=== PATIENT | female | born 1965 | race Caucasian/White ===

== ENCOUNTER 2016-10-28 08:46 | Observation (INO) | payer MEDICARE ==
[~2016-10-28] VITALS: Ht 165.1 cm; Wt 108.2 kg
[2016-10-28] VITALS (10 sets, daily range): BP systolic 120–149; BP diastolic 65–96; PULSE 76–94; RESP 16–20; TEMP 97.6–98; O2SAT 94–98
[~2016-10-28 08:46] MED LIST: AMLO10TA2 PO; ASPI325T PO; ATOR1TAB18 PO; CLOP75TA PO; FAMO40TA PO; GABA400C5 PO; LEVEMIR SQ; LISI10TA3 PO; METO50TA PO; NORC5TAB PO; PARO25TA PO; TOPI1TAB36 PO; TRAZ50TA12 PO
[2016-10-28] MEDS ORDERED: SODIUM CHLORIDE 0.9% FLUSH 5 ML FLUSH IVF PRN ×2 (09:00→14:15)
--- NOTE | 2016-10-28 09:06 | PD ---
HPI Chief Complaint: Neuro Symptoms/ Deficits Time Seen by Provider: 08:51 Travel History International Travel<30 days: No Contact w/Intl Traveler<30days: No Traveled to known affect area: No History of Present Illness HPI The patient is a 51-year-old female who presents emergency department for strokelike symptoms. The patient to bed last night around 1 AM, which she awakened this morning she noticed that she had some dysarthria and increased right sided weakness. The patient has a history of previous CVA, last CVA was December 2015. The patient states she was seen at [facility] at that time, her neurologist was Dr. Hopkins. The patient notes mild dysarthria this morning, dizziness, not "feeling", and increased right sided weakness. The states the patient has a history of asymmetric smile after previous stroke and does have residual deficits on the right side from her previous stroke. The patient does take aspirin or Plavix on a daily basis for her CVA. The patient also has a history of diabetes, blood glucose upon arrival was 156. The patient denies any chest pain, shortness breath, nausea, vomiting, or abdominal pain. The patient's primary physician is Dr. Jitendra Haywood. [facility] Past Medical History Hx Anticoagulant Therapy: Yes (PLAVIX; 325MG ASA) Blood Disorders: No Bipolar Disorder: Yes Anxiety: Yes Depression: Yes Heart Rhythm Problems: Yes Cancer: No Cardiac Catheterization: Yes Cardiovascular Problems: Yes (3 CURRY'S; HTN) High Cholesterol: Yes Chemotherapy: No Chest Pain: Yes COPD: Yes Cerebrovascular Accident: Yes (2 STROKES) Coronary Artery Disease: Yes Diabetes: Yes (TYPE 2) Diminished Hearing: Yes (Bi-lateral) Endocrine: No GERD: Yes Genitourinary: Yes Headaches: Yes Hypertension: Yes Immune Disorder: No Kidney Stones: Yes Musculoskeletal: No Neurologic: Yes (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 FLUID) Psychiatric: Yes (BIPOLAR) Respiratory: Yes (PNEUMONIA X 2) Integumentary: Yes (FACIAL CELLULITIS ) Immunizations Current: Yes Migraines: Yes Myocardial Infarction: Yes Pneumonia: Yes Radiation Therapy: No Seizures: No Sleep Apnea: Yes PNEUMOCCOCAL Vaccine (Year): 2 : 4 Para: 4 : 1 Past Surgical History AICD: No Arteriovenous Shunt: No Body Medical Devices: PROMUS STENT PLACEMENT LAD/RCA Cardiac Surgery: Yes (CARDIAC CATH) Section: Yes Coronary Stent: Yes Ear Surgery: Yes Endocrine Surgery: No Eye Surgery: No Genitourinary Surgery: No Hysterectomy: Yes Insulin Pump: No Joint Replacement: No Neurologic Surgery: Yes (SPINAL FLUID REMOVED 2013) Oral Surgery: No Pacemaker: No Tonsillectomy: Yes Other Surgery: Yes Social History Alcohol Use: No Tobacco Use: No Substance Use: No Allergies-Medications (Allergen,Severity, Reaction): Coded Allergies: Latex (Verified Allergy, Intermediate, ITCHING, 08/10/16) Adhesives (Verified Allergy, Mild, RASH/ITCHING, 08/10/16) Bee Sting (Verified Allergy, Unknown, SHORTNESS OF BREATH, 08/10/16) Reported Meds & Prescriptions Reported Meds & Active Scripts Active Reported Clopidogrel (Clopidogrel Bisulfate) 75 Mg Tab 75 Mg PO DAILY Trazodone (Trazodone HCl) 50 Mg Tab 50 Mg PO HS Topiramate 50 Mg Tab 50 Mg PO BID Paroxetine ER (Paroxetine HCl) 25 Mg Tab 25 Mg PO DAILY Metoprolol Tartrate 50 Mg Tab 50 Mg PO BID Lisinopril 10 Mg Tab 10 Mg PO DAILY Levemir Inj (Insulin Detemir) 1,000 unit/ 10 ML Vial 22 Units SQ DAILY Do not mix with any other Insulin. Gabapentin 400 Mg Cap 400 Cap PO TID Famotidine 40 Mg Tab 40 Mg PO HS Atorvastatin (Atorvastatin Calcium) 80 Mg Tab 80 Mg PO HS Aspirin 325 Mg Tab 325 Mg PO DAILY Amlodipine (Amlodipine Besylate) 10 Mg Tab 10 Mg PO DAILY Review of Systems Except as stated in HPI: all other systems reviewed are Neg Eyes: No: Blurred Vision HENT: Positive: Lightheadedness, No: Headaches Cardiovascular: No: Chest Pain or Discomfort Respiratory: No: Shortness of Breath Gastrointestinal: No: Nausea, Vomiting, Abdominal Pain Neurologic: Positive: Focal Abnormalities, Slurred Speech, Paresthesia ( neuropathy lower extremities) Physical Exam Narrative GENERAL: Awake, alert, 51-year-old female who appears her stated age and is in no acute respiratory distress. SKIN: Warm and dry. HEAD: Atraumatic. Normocephalic. EYES: Pupils equal and round. Pupils are 3 mm bilateral and reactive. EOMs are intact. She is able to see fingers at a distance of 2 feet without difficulty. ENT: No nasal bleeding or discharge. Mucous membranes pink and moist. NECK: Trachea midline. No JVD. CARDIOVASCULAR: Regular rate and rhythm. No murmur appreciated. RESPIRATORY: No accessory muscle use. Clear to auscultation. Breath sounds equal bilaterally. GASTROINTESTINAL: Abdomen soft, non-tender, nondistended. MUSCULOSKELETAL: No obvious deformities. No clubbing. No cyanosis. No edema. NEUROLOGICAL: Awake and alert. Asymmetric smile with right facial droop. Tongue deviates to the right. Dysarthria noted. No drift of the upper or lower extremities. Sensation is diminished on the right upper extremity and right lower extremity to soft touch. Weakness noted of the right upper extremity and right lower extremity against resistance, however, no drift. Oriented 4. Follows commands without difficulty. PSYCHIATRIC: Appropriate mood and affect; insight and judgment normal. Data Data Last Documented VS Vital Signs Date Time Temp Pulse Resp B/P Pulse Ox O2 Delivery O2 Flow Rate FiO2 10/28/16 09:43 142/85 137/81 10/28/16 09:24 98 Room Air 10/28/16 08:59 97.7 89 16 Orders Electrocardiogram (10/28/16 08:58) Prothrombin Time / Inr (Pt) (10/28/16 08:58) Act Partial Throm Time (Ptt) (10/28/16 08:58) Complete Blood Count With Diff (10/28/16 08:58) Comprehensive Metabolic Panel (10/28/16 08:58) Creatine Kinase (Cpk) (10/28/16 08:58) Troponin I (10/28/16 08:58) Urinalysis - C+S If Indicated (10/28/16 08:58) Ct Brain W/O Iv Contrast(Rout) (10/28/16 08:58) Chest, Single Ap (10/28/16 08:58) Ecg Monitoring (10/28/16 08:58) Iv Access Insert/Monitor (10/28/16 08:58) Oximetry (10/28/16 08:58) Sodium Chloride 0.9% Flush (Ns Flush) (10/28/16 09:00) Aspirin (Aspirin) (10/28/16 09:45) Admit Order (Ed Use Only) (10/28/16 10:23) Labs Laboratory Tests Test 10/28/16 09:20 White Blood Count 7.3 TH/MM3 Red Blood Count 4.48 MIL/MM3 Hemoglobin 12.9 GM/DL Hematocrit 38.3 % Mean Corpuscular Volume 85.4 FL Mean Corpuscular Hemoglobin 28.8 PG Mean Corpuscular Hemoglobin 33.7 % Concent Red Cell Distribution Width 12.3 % Platelet Count 288 TH/MM3 Mean Platelet Volume 8.4 FL Neutrophils (%) (Auto) 60.7 % Lymphocytes (%) (Auto) 27.7 % Monocytes (%) (Auto) 7.9 % Eosinophils (%) (Auto) 2.7 % Basophils (%) (Auto) 1.0 % Neutrophils # (Auto) 4.4 TH/MM3 Lymphocytes # (Auto) 2.0 TH/MM3 Monocytes # (Auto) 0.6 TH/MM3 Eosinophils # (Auto) 0.2 TH/MM3 Basophils # (Auto) 0.1 TH/MM3 CBC Comment DIFF FINAL Differential Comment Prothrombin Time 10.5 SEC Prothromb Time International 1.0 RATIO Ratio Activated Partial 28.8 SEC Thromboplast Time Sodium Level 140 MEQ/L Potassium Level 4.0 MEQ/L Chloride Level 106 MEQ/L Carbon Dioxide Level 23.3 MEQ/L Anion Gap 11 MEQ/L Blood Urea Nitrogen 17 MG/DL Creatinine 0.76 MG/DL Estimat Glomerular Filtration 80 ML/MIN Rate Random Glucose 164 MG/DL Calcium Level 9.1 MG/DL Total Bilirubin 0.4 MG/DL Aspartate Amino Transf 37 U/L (AST/SGOT) Alanine Aminotransferase 39 U/L (ALT/SGPT) Alkaline Phosphatase 118 U/L Total Creatine Kinase 44 U/L Troponin I LESS THAN 0.02 NG/ML Total Protein 7.7 GM/DL Albumin 3.3 GM/DL MDM Medical Decision Making Medical Screen Exam Complete: Yes Emergency Medical Condition: Yes Medical Record Reviewed: Yes Interpretation(s) EKG reveals normal sinus rhythm with a rate of 73. No ischemic changes or ectopy noted. Last Impressions Head CT 10/28/16 0858 Signed Impressions: Service Date/Time: Friday, October 28, 2016 09:01 - CONCLUSION: Indeterminate age low density left hemisphere region of the basal ganglia and internal capsule extending up into the centrum semi-ovale. This is of indeterminate chronicity. There is no mass effect or atrophy in this region. Additionally appreciated is a calvarial defect in the posterior right frontal region apparently secondary to a prior shunt which has been removed Reji Shelton MD Laboratory Tests Test 10/28/16 09:20 White Blood Count 7.3 TH/MM3 Red Blood Count 4.48 MIL/MM3 Hemoglobin 12.9 GM/DL Hematocrit 38.3 % Mean Corpuscular Volume 85.4 FL Mean Corpuscular Hemoglobin 28.8 PG Mean Corpuscular Hemoglobin 33.7 % Concent Red Cell Distribution Width 12.3 % Platelet Count 288 TH/MM3 Mean Platelet Volume 8.4 FL Neutrophils (%) (Auto) 60.7 % Lymphocytes (%) (Auto) 27.7 % Monocytes (%) (Auto) 7.9 % Eosinophils (%) (Auto) 2.7 % Basophils (%) (Auto) 1.0 % Neutrophils # (Auto) 4.4 TH/MM3 Lymphocytes # (Auto) 2.0 TH/MM3 Monocytes # (Auto) 0.6 TH/MM3 Eosinophils # (Auto) 0.2 TH/MM3 Basophils # (Auto) 0.1 TH/MM3 CBC Comment DIFF FINAL Differential Comment Prothrombin Time 10.5 SEC Prothromb Time International 1.0 RATIO Ratio Activated Partial 28.8 SEC Thromboplast Time Sodium Level 140 MEQ/L Potassium Level 4.0 MEQ/L Chloride Level 106 MEQ/L Carbon Dioxide Level 23.3 MEQ/L Anion Gap 11 MEQ/L Blood Urea Nitrogen 17 MG/DL Creatinine 0.76 MG/DL Estimat Glomerular Filtration 80 ML/MIN Rate Random Glucose 164 MG/DL Calcium Level 9.1 MG/DL Total Bilirubin 0.4 MG/DL Aspartate Amino Transf 37 U/L (AST/SGOT) Alanine Aminotransferase 39 U/L (ALT/SGPT) Alkaline Phosphatase 118 U/L Total Creatine Kinase 44 U/L Troponin I LESS THAN 0.02 NG/ML Total Protein 7.7 GM/DL Albumin 3.3 GM/DL Chest x-ray unremarkable Differential Diagnosis Differential diagnosis includes CVA, TIA, intracranial hemorrhage, complicated migraine, hypoglycemia, meningitis, encephalitis. Narrative Course IV was established, labs are drawn and sent, and the patient was placed on cardiac telemetry monitoring and continuous pulse oximetry monitoring. Patient was sent for stat CT of the brain. Patient is not a candidate for stroke alert/ TPA as she went to bed at 1 AM and awakened with symptoms, 8 hours prior to arrival. CT was negative for hemorrhage, therefore, aspirin was ordered, however, patient took aspirin, 325 mg, prior to arrival. The patient's electrolytes are unremarkable. Chest x-rays clear. The patient's dysarthria appeared to have improved slightly from her initial presentation. Patient does have a history of CVA with prior right sided deficits. Therefore, patient will be admitted to the hospital for mild dysarthria, may benefit from echocardiogram , ultrasound of the carotids, and speech therapy consultation. The patient has [facility] and her primary physician is Dr. Haywood, therefore, [facility] and Dr. Haywood's office were notified and the patient will be admitted to Dr. Haywood. Physician Communication Physician Communication The patient's primary physician is Dr. Haywood and the patient has [facility]. Therefore, call was placed to Dr. Haywood and the on-call [facility] physician. I discussed patient with Dr. Campos who states that it is okay if it is admitted to Dr. Haywood. I discussed the patient with Dr. Haywood's nurse practitioner, Rose, who agrees with admission. Diagnosis Primary Impression: Acute focal neurological deficit, onset within 3-24 hours Additional Impression: Dysarthria Admitting Information Admitting Physician Requests: Admit Condition: Stable Sabas Cummings MD Oct 28, 2016 09:06
--- NOTE | 2016-10-28 09:22 | RADHPO ---
EXAM DATE/TIME: 10/28/2016 09:01 [facility] COMPARISON: CT BRAIN W/O CONTRAST, June 16, 2014, 21:32. INDICATIONS : New onset right facial droop and difficulty speaking. RADIATION DOSE: 63.03 CTDIvol (mGy) MEDICAL HISTORY : Cerebrovascular disease. Myocardial infarction. Chronic obstructive pulmonary disease.Hypertension. Diabetes. SURGICAL HISTORY : Hysterectomy. Shunt -- removed. ENCOUNTER: Initial ACUITY: 1 day PAIN SCALE: 0/10 LOCATION: cranial TECHNIQUE: Multiple contiguous axial images were obtained of the head. Using automated exposure control and adj ustment of the mA and/or kV according to patient size, radiation dose was kept as low as reasonably a chievable to obtain optimal diagnostic quality images. FINDINGS: CEREBRUM: The ventricles are normal for age. No evidence of midline shift, mass lesion, hemorrhage or acute in farction. No extra-axial fluid collections are seen. Low density appreciated in the left hemisphere region of the basal ganglia and internal capsule extending up into the centrum semi-ovale without mas s effect. POSTERIOR FOSSA: The cerebellum and brainstem are intact. The 4th ventricle is midline. The cerebellopontine angle i s unremarkable. EXTRACRANIAL: The visualized portion of the orbits is intact. SKULL: The calvaria is intact. No evidence of skull fracture. There is a margaret hole in the posterior right f rontal region. CONCLUSION: Indeterminate age low density left hemisphere region of the basal ganglia and internal capsule extend ing up into the centrum semi-ovale. This is of indeterminate chronicity. There is no mass effect or a trophy in this region. Additionally appreciated is a calvarial defect in the posterior right frontal region apparently secondary to a prior shunt which has been removed Reji Shelton MD on October 28, 2016 at 9:17 Board Certified Radiologist. This report was verified electronically.
[2016-10-28 09:40] LABS: AUTOMATED NEUTROPHIL # 4.4 TH/MM3 (1.8-7.7); BASOPHIL # 0.1 TH/MM3 (0-0.2); EOSINOPHIL # 0.2 TH/MM3 (0-0.4); EOSINOPHIL % 2.7 % (0.0-4.0); HEMATOCRIT 38.3 % (35.0-46.0); HEMO FLAGS DIFF FINAL; LYMPH % 27.7 % (9.0-44.0); MEAN CELL VOLUME 85.4 FL (80.0-100.0); MEAN CORPUSCULAR HEMOGLOBIN 28.8 PG (27.0-34.0); MEAN CORPUSCULAR HGB CONC 33.7 % (32.0-36.0); MONO % 7.9 % (0.0-8.0); NEUT % 60.7 % (16.0-70.0); PLATELET COUNT 288 TH/MM3 (150-450); RED BLOOD COUNT 4.48 MIL/MM3 (4.00-5.30); RED CELL DISTRIBUTION WIDTH 12.3 % (11.6-17.2); WHITE BLOOD COUNT 7.3 TH/MM3 (4.0-11.0)
[2016-10-28] MEDS ORDERED: ASPIRIN 325 MG TAB PO ONE (09:45)
[2016-10-28 09:49] LABS: APTT (PATIENT) 28.8 SEC (24.3-30.1); PROTHROMBIN TIME - PATIENT 10.5 SEC (9.8-11.6)
[2016-10-28 09:56] LABS: BICARBONATE 23.3 MEQ/L (21.0-32.0)
[2016-10-28 09:58] LABS: ANION GAP 11 MEQ/L (5-15); CHLORIDE 106 MEQ/L (98-107); SODIUM (NA) 140 MEQ/L (136-145)
[2016-10-28 09:59] LABS: AST (GOT) 37 U/L (15-37); GLOMERULAR FILTRATION RATE 80 ML/MIN (>89)
[2016-10-28 10:00] LABS: BLOOD UREA NITROGEN 17 MG/DL (7-18)
[2016-10-28 10:01] LABS: ALT (GPT) 39 U/L (10-53)
[2016-10-28 10:02] LABS: ALKALINE PHOSPHATASE 118 U/L (45-117)
[2016-10-28 10:07] LABS: CREATINE KINASE 44 U/L (26-192)
[2016-10-28 10:13] LABS: TOTAL BILIRUBIN ADULT 0.4 MG/DL (0.2-1.0)
--- NOTE | 2016-10-28 10:36 | RADHPO ---
EXAM DATE/TIME: 10/28/2016 09:15 [facility] COMPARISON: CHEST SINGLE AP, July 04, 2011, 23:22. INDICATIONS : Short of breath. MEDICAL HISTORY : Cardiovascular disease. Stroke. Cerebrovascular disease. SURGICAL HISTORY : Coronary artery stent. loop recorder ENCOUNTER: Initial ACUITY: 1 day PAIN SCORE: 0/10 LOCATION: Bilateral chest FINDINGS: The heart is normal in size. The lungs are clear. The visualized bony structures are grossly intact. Note is made of a pacer. CONCLUSION: 1. No acute cardiopulmonary findings. Louie Alvarenga MD on October 28, 2016 at 9:39 Board Certified Radiologist. This report was verified electronically.
[2016-10-28] MEDS ORDERED: DEXTROSE 50% IN WATER 50 ML VIAL(D50) IV PUSH PRN (14:15)
[2016-10-28] MEDS ORDERED: GLUCAGON 1 MG/ML VIAL IM/SQ PRN (14:15)
[2016-10-28] MEDS ORDERED: ENALAPRILAT 1.25 MG/ML VIAL IV PRN (14:15)
[2016-10-28] MEDS: INSULIN ASPART SUPPLEMENTAL SCALE SQ SCH ×2 (16:00→21:00)
--- NOTE | 2016-10-28 16:13 | HHI.HP ---
History of Present Illness Service Primary Care Primary Care Physician Jitendra Haywood, DO Admission Diagnosis acute neurologic deficit with dysarthria, rule out CVA Diagnoses: (1) Dysarthria Diagnosis: Principal (2) Acute focal neurological deficit, onset within 3-24 hours Diagnosis: Principal (3) Chronic right shoulder pain Diagnosis: Secondary (4) History of loop recorder Diagnosis: Secondary (5) CVA (cerebral vascular accident) Diagnosis: Secondary (6) Diabetes Diagnosis: Secondary (7) History of TIAs Diagnosis: Principal History of Present Illness Very pleasant 51 y/o female patient of Dr. Haywood's who presented with worsening dysarthria, feeling disoriented, but aware, dizziness and increasing right weakness. Some of these symptoms have improved since admission but she remains with some increase in her baseline dysarthria and residual right arm weakness from a previous left basal ganglia CVA. She has a history of pseudotumor cerebri, previous CVA's, TIA's, CAD/AK/Stent. She has been admitted for continued dysarthria and right weakness pending neuro eval. Review of Systems Constitutional: COMPLAINS OF: Dizziness Neurologic: COMPLAINS OF: Speech Problems (Worsening dysarthria), Poor Balance Past Family Social History Allergies: Coded Allergies: Latex (Verified Allergy, Intermediate, ITCHING, 08/10/16) Adhesives (Verified Allergy, Mild, RASH/ITCHING, 08/10/16) Bee Sting (Verified Allergy, Unknown, SHORTNESS OF BREATH, 08/10/16) Past Medical History Pseudotumor cerebri CVA - Left basal ganglia 12/2015 TIA's Obesity Diabetes II Hypertension Tobacco abuse CAD s/p AK/stent Hyperlipidemia TRACY Peripheral neuropathy Anxiety Depression Past Surgical History Loop recorder implant Placement of a [employer] shunt and consequent removal, Left heart cath with 2 stent placements Hysterectomy Cyst removal 2 C-sections. Reported Medications Reported Meds & Active Scripts Active Reported Clopidogrel (Clopidogrel Bisulfate) 75 Mg Tab 75 Mg PO DAILY Trazodone (Trazodone HCl) 50 Mg Tab 50 Mg PO HS Topiramate 50 Mg Tab 50 Mg PO BID Paroxetine ER (Paroxetine HCl) 25 Mg Tab 25 Mg PO DAILY Metoprolol Tartrate 50 Mg Tab 50 Mg PO BID Lisinopril 10 Mg Tab 10 Mg PO DAILY Levemir Inj (Insulin Detemir) 1,000 unit/ 10 ML Vial 22 Units SQ DAILY Do not mix with any other Insulin. Gabapentin 400 Mg Cap 400 Cap PO TID Famotidine 40 Mg Tab 40 Mg PO HS Atorvastatin (Atorvastatin Calcium) 80 Mg Tab 80 Mg PO HS Aspirin 325 Mg Tab 325 Mg PO DAILY Amlodipine (Amlodipine Besylate) 10 Mg Tab 10 Mg PO DAILY Active Ordered Medications Current Medications Medications (Trade) Dose Ordered Sig/Ashu Route Start Time Stop Time Status Last Admin (NS Flush) 2 ml BID IVF 10/28/16 21:00 (NS Flush) 2 ml UNSCH PRN IVF 10/28/16 14:15 (Vasotec Inj) 1.25 mg Q4H PRN IV 10/28/16 14:15 (Aspirin Chew) 81 mg DAILY PO 10/29/16 09:00 (Pravachol) 40 mg HS PO 10/28/16 21:00 (D50w (Vial) Inj) 25 ml UNSCH PRN IV PUSH 10/28/16 14:15 (Glucagon Inj) 1 mg UNSCH PRN IM/SQ 10/28/16 14:15 Family History CAD, DM Social History Long history of smoking, reported quit last year, no significant ETOH or illicits. Lives with her . Physical Exam Vital Signs Vital Signs Date Time Temp Pulse Resp B/P Pulse Ox O2 Delivery O2 Flow Rate FiO2 10/28/16 11:30 97.7 76 20 125/72 98 10/28/16 10:44 76 18 124/65 98 Room Air 10/28/16 09:43 142/85 137/81 10/28/16 09:24 98 Room Air 10/28/16 08:59 97.7 89 16 149/84 98 Physical Exam GENERAL: This is a well-nourished, well-developed patient, in no apparent distress. SKIN: No rashes, ecchymoses or lesions. Cool and dry. HEAD: Atraumatic. Normocephalic. No temporal or scalp tenderness. EYES: Pupils equal round and reactive. Extraocular motions intact. No scleral icterus. No injection or drainage. ENT: Nose without bleeding, purulent drainage or septal hematoma. Throat without erythema, tonsillar hypertrophy or exudate. Uvula midline. Airway patent. NECK: Trachea midline. No JVD or lymphadenopathy. Supple, nontender, no meningeal signs. CARDIOVASCULAR: Regular rate and rhythm without murmurs, gallops, or rubs. RESPIRATORY: Clear to auscultation. Breath sounds equal bilaterally. No wheezes , rales, or rhonchi. GASTROINTESTINAL: Abdomen soft, non-tender, nondistended. No hepato-splenomegaly , or palpable masses. No guarding. MUSCULOSKELETAL: Extremities without clubbing, cyanosis, or edema. No joint tenderness, effusion, or edema noted. No calf tenderness. Negative Homans sign bilaterally. NEUROLOGICAL: Awake and alert. Slurred speech, mild expressive aphasia, residual right weakness. Laboratory Laboratory Tests Test 10/28/16 09:20 White Blood Count 7.3 Red Blood Count 4.48 Hemoglobin 12.9 Hematocrit 38.3 Mean Corpuscular Volume 85.4 Mean Corpuscular Hemoglobin 28.8 Mean Corpuscular Hemoglobin 33.7 Concent Red Cell Distribution Width 12.3 Platelet Count 288 Mean Platelet Volume 8.4 Neutrophils (%) (Auto) 60.7 Lymphocytes (%) (Auto) 27.7 Monocytes (%) (Auto) 7.9 Eosinophils (%) (Auto) 2.7 Basophils (%) (Auto) 1.0 Neutrophils # (Auto) 4.4 Lymphocytes # (Auto) 2.0 Monocytes # (Auto) 0.6 Eosinophils # (Auto) 0.2 Basophils # (Auto) 0.1 CBC Comment DIFF FINAL Differential Comment Prothrombin Time 10.5 Prothromb Time International 1.0 Ratio Activated Partial 28.8 Thromboplast Time Sodium Level 140 Potassium Level 4.0 Chloride Level 106 Carbon Dioxide Level 23.3 Anion Gap 11 Blood Urea Nitrogen 17 Creatinine 0.76 Estimat Glomerular Filtration 80 Rate Random Glucose 164 Calcium Level 9.1 Total Bilirubin 0.4 Aspartate Amino Transf 37 (AST/SGOT) Alanine Aminotransferase 39 (ALT/SGPT) Alkaline Phosphatase 118 Total Creatine Kinase 44 Troponin I LESS THAN 0.02 Total Protein 7.7 Albumin 3.3 Result Diagram: 10/28/1691910/28/16919 Imaging Last [address] 10/28/16 0858 Signed Impressions: Service Date/Time: Friday, October 28, 2016 09:01 - CONCLUSION: Indeterminate age low density left hemisphere region of the basal ganglia and internal capsule extending up into the centrum semi-ovale. This is of indeterminate chronicity. There is no mass effect or atrophy in this region. Additionally appreciated is a calvarial defect in the posterior right frontal region apparently secondary to a prior shunt which has been removed Reji Shelton MD Chest X-Ray 10/28/16 0858 Signed Impressions: Service Date/Time: Friday, October 28, 2016 09:15 - CONCLUSION: 1. No acute cardiopulmonary findings. Louie Alvarenga MD Assessment and Plan Problem List: (1) Dysarthria Status: Acute Plan: Worsened from baseline per patient, but present on discharge from [facility] last year. Improving and nearly baseline per pt. (2) Acute focal neurological deficit, onset within 3-24 hours Status: Acute Plan: No longer dizzy, but still experiencing some worsened dysarthria. Neuro consult, echo, carotid US. (3) Diabetes Status: Chronic Plan: Accuchecks, SSI, carb controlled diet. (4) CVA (cerebral vascular accident) Status: Chronic Plan: History of basal ganglia CVA with right residual weakness, right mouth droop and dysarthria. (5) History of loop recorder Status: Chronic Plan: Interrogation will be requested to evaluate arrhythmias. (6) Coronary artery disease Status: Chronic Plan: Her last catheterization was done in 2013. She states she has had a loop recorded implanted to monitor for arrhythmias. Once verified, an interrogation will be requested. Assessment and Plan D/W pt., RN, Dr. Haywood. Problem Qualifiers (1) CVA (cerebral vascular accident): (2) Diabetes: Qualified Code: E11.59 - Type 2 diabetes mellitus with other circulatory complication, unspecified mcfp insulin use status (3) Coronary artery disease: Rose Dhillon Oct 28, 2016 16:13
--- NOTE | 2016-10-28 17:25 | RADHPO ---
EXAM DATE/TIME: 10/28/2016 15:47 [facility] COMPARISON: CT BRAIN W/O CONTRAST, October 28, 2016, 9:01. INDICATIONS : Cerebrovascular accident. MEDICAL HISTORY : Myocardial infarction. Hypercholesterolemia. Emphysema. Pseudo tumor cerebri-lumbar valve, over produ ction spinal fluid. Syncope. CVA. Seizures. Migraines. CAD. Pneumonia. COPD. HTN. Sleep apnea. GERD. Kidney stones. Diabetes. Bipolar. Depression. Anxiety. Anticoagulant therapy, Plavix & Aspirin 325mg . SURGICAL HISTORY : Tonsillectomy. Coronary artery stent. Angioplasty. Spinal fluid removed. Cardiac cath. Hysterectomy. section. Right shoulder bone spurs removed. Left foot surgery. Cerebral shunt placed and rem sage. ENCOUNTER: Initial ACUITY: 1 day PAIN SCORE: 6/10 LOCATION: Bilateral neck PEAK SYSTOLIC VELOCITIES (cm/sec): ICA/CCA RATIO: Right: 0.7 Left: 0.9 ICA: Right: 76 Left: 74 CCA: Right: 111 Left: 116 ECA: Right: 150 Left: 79 VERTEBRAL: Right: 52 antegrade Left: 42 antegrade Elevated flow velocities and ICA/CCA ratios have been found to correlate with increased degrees of vessel stenosis, calculated as percentage of diameter relative to a normal segment of distal ICA/CCA FINDINGS: RIGHT CAROTID: No significant stenosis with minimal plaquing at the bulb LEFT CAROTID: No significant stenosis is visualized. The waveforms are within normal limits. VERTEBRAL ARTERIES: Antegrade flow is seen in both vertebral arteries. MISCELLANEOUS: None. CONCLUSION: No evidence of anatomic or physiologic stenosis. Reji Shelton MD on October 28, 2016 at 17:21 Board Certified Radiologist. This report was verified electronically.
[2016-10-28] MEDS: CLOPIDOGREL 75 MG TAB PO ONE ×2 (17:30→19:00)
[2016-10-28] MEDS ORDERED: LORazepam 2 MG TAB PO ONE (18:45)
[2016-10-28 19:41] LABS: BLOOD, URINE NEG (NEG); GLUCOSE,URINE NEG (NEG); KETONE, URINE NEG (NEG); NITRITE,URINE NEG (NEG); PH, URINE 6.5 (5.0-8.5)
[2016-10-28 19:43] LABS: URINE COLOR YELLOW (YELLW/STRAW)
[2016-10-28 19:45] LABS: BACTERIA, URINE FEW /hpf; COMMENT (UR) CULTURE INDICATED; CULTURE IF INDICATED CULTURE INDICATED; RBC, URINE 0-2 /hpf (0-3)
--- NOTE | 2016-10-28 20:25 | RADHPO ---
EXAM DATE/TIME: 10/28/2016 19:58 [facility] COMPARISON: No previous studies available for comparison. INDICATIONS : CVA. Right side weakness. MEDICAL HISTORY : Stroke Diabetes mellitus type 2. Myocardial infarction. Pseudotumor cerebri. SURGICAL HISTORY : Tonsillectomy. Stent placed and then removed in brain. ENCOUNTER: Initial ACUITY: 2 day PAIN SCORE: 0/10 LOCATION: head TECHNIQUE: Multiplanar, multisequence MRI of the brain was performed without contrast. FINDINGS: There is a focal area of abnormal signal involving the left basal ganglia extending cephalad into the henderson radiata. This shows restricted diffusion. Areas of chronic lacunar style infarction are noted within the left cerebral peduncle as well as the right cerebellar hemisphere no hemorrhage. No midli ne shift or herniation. Orbital structures are unremarkable. Paranasal sinuses and mastoid air cells are clear. CONCLUSION: Acute nonhemorrhagic infarction involving the left basal ganglia extending into the henderson radiata. Aric More Jr., MD on October 28, 2016 at 20:21 Board Certified Radiologist. This report was verified electronically.
[2016-10-28] MEDS: GABAPENTIN 400 MG CAP PO SCH (21:00)
[2016-10-28] MEDS: TOPIRAMATE 25 MG TAB PO SCH (21:08)
[2016-10-28] MEDS: METOPROLOL TARTRATE 50 MG TAB PO SCH (21:08)
[2016-10-28] MEDS: PRAVASTATIN SOD 40 MG TAB PO SCH (21:08)
[2016-10-28] MEDS: FAMOTIDINE 20 MG TAB PO SCH (21:08)
[2016-10-28] MEDS: SODIUM CHLORIDE 0.9% FLUSH 5 ML FLUSH IVF SCH (21:09)
[2016-10-28] MEDS: traZODone HCL 50 MG TAB PO SCH (21:09)
--- NOTE | 2016-10-28 21:21 | RADHPO ---
EXAM DATE/TIME: 10/28/2016 19:58 [facility] COMPARISON: MRI BRAIN W/O CONTRAST, October 28, 2016, 19:58. INDICATIONS : CVA. MEDICAL HISTORY : Hypertension. Diabetes mellitus type 2. Myocardial infarction. Pseudotumor cerebri. SURGICAL HISTORY : Tonsillectomy. Stent placed and removed from brain. ENCOUNTER: Initial ACUITY: 2 day PAIN SCORE: 0/10 LOCATION: head Please note a normal MRA of the brain does not entirely exclude the possibility of a small aneurysm, nor the possibility of distal intracranial vessel disease. TECHNIQUE: 3D time of flight MRA was performed. Source images, multiplanar STS MIP, and 3D volume MIP reconstru ctions were reviewed. FINDINGS: No significant vascular malformations, vessel truncation or aneurysmal dilatations are seen except fo r slight atherosclerotic changes involving multiple branches bilaterally mainly the MCAs. CONCLUSION: Slight atherosclerotic changes of distal branches bilaterally, otherwise unremarkable . Justine Singleton MD on October 28, 2016 at 21:19 Board Certified Radiologist. This report was verified electronically.
[2016-10-29] VITALS (8 sets, daily range): BP systolic 105–132; BP diastolic 62–80; PULSE 60–81; RESP 14–20; TEMP 96.4–98.4; O2SAT 93–99
[2016-10-29] MEDS: INSULIN ASPART SUPPLEMENTAL SCALE SQ SCH ×4 (06:46→20:32)
[2016-10-29 07:11] LABS: AUTOMATED NEUTROPHIL # 4.2 TH/MM3 (1.8-7.7); BASOPHIL # 0.1 TH/MM3 (0-0.2); BASOPHIL % 1.2 % (0.0-2.0); EOSINOPHIL # 0.3 TH/MM3 (0-0.4); HEMATOCRIT 40.7 % (35.0-46.0); HEMO FLAGS DIFF FINAL; LYMPH % 30.1 % (9.0-44.0); LYMPHOCYTE # 2.2 TH/MM3 (1.0-4.8); MEAN CELL VOLUME 85.2 FL (80.0-100.0); MEAN CORPUSCULAR HEMOGLOBIN 28.6 PG (27.0-34.0); MEAN CORPUSCULAR HGB CONC 33.6 % (32.0-36.0); MONO % 7.8 % (0.0-8.0); NEUT % 56.9 % (16.0-70.0); PLATELET COUNT 276 TH/MM3 (150-450); RED BLOOD COUNT 4.77 MIL/MM3 (4.00-5.30); RED CELL DISTRIBUTION WIDTH 12.4 % (11.6-17.2); WHITE BLOOD COUNT 7.4 TH/MM3 (4.0-11.0)
[2016-10-29 07:18] LABS: CHLORIDE 107 MEQ/L (98-107); SODIUM (NA) 140 MEQ/L (136-145)
[2016-10-29 07:21] LABS: ANION GAP 9 MEQ/L (5-15); BICARBONATE 23.6 MEQ/L (21.0-32.0); BLOOD UREA NITROGEN 16 MG/DL (7-18)
[2016-10-29 07:24] LABS: GLOMERULAR FILTRATION RATE 78 ML/MIN (>89)
[2016-10-29] MEDS ORDERED: GABAPENTIN 300 MG CAP PO ONE (08:15)
--- NOTE | 2016-10-29 08:43 | MB ---
cc: ARTIS LONDON M.D. DATE OF CONSULTATION: 10/28/2016 HISTORY OF PRESENT ILLNESS This is a 51-year-old woman seen in neurological consultation. She comes in with worsening of speech and some right-sided weakness. She woke up with these symptoms. She has a history of two strokes last year in November and March 2016. She has been taking Plavix and aspirin. PAST MEDICAL HISTORY 1. She has a history of pseudotumor cerebri and she was treated in October 2015 with a shunt that was removed a week later because of infection. After that, her medications were adjusted from 30 pills a day to nine types of medications a day and her headaches improved. 2. History of recent right rotator cuff surgery. 3. Coronary artery disease. 4. Sleep apnea. 5. Neuropathy. 6. Diabetes. MEDICATIONS 1. Aspirin. 2. Plavix. 3. Trazodone. 4. Topiramate. 5. Paxil. 6. Metoprolol. 7. Lisinopril. 8. Levemir. 9. Gabapentin, apparently 400 mg three times a day. 10.Famotidine. 11.Atorvastatin 80 mg a day. 12.Amlodipine. NEUROLOGICAL EXAMINATION The patient is alert, pleasant, oriented. An ultrasound of the carotid arteries were in progress, but the patient was examined. Ocular movements and visual calhoun were full. Pupils are about the same size, reactive. She does have right facial weakness which is apparently old. Speech is mildly dysarthric. On the bedside exam, there is some very mild right hemiparesis. Reflexes were trace versus absent and plantar responses possibly extensor on the right, flexor on the left. IMAGING A CT brain was reviewed. There is an old area of left basal ganglia stroke and possibly a new area a little bit deeper and lower in the basal ganglia thalamus. ASSESSMENT 1. Worsening of dysarthria and right hemiparesis on a history of stroke with the same symptoms on a couple of occasions last year. 2. History of pseudotumor cerebri treated with a shunt, but removed a week later because of infection. 3. History of neuropathy. 4. History of polypharmacy. PLAN/RECOMMENDATIONS 1. Continue aspirin and Plavix. 2. Carotid ultrasound is in progress. 3. Pending echocardiogram. 4. I will check an MRI brain and MRA head if feasible. It appears that she has a loop recorder which I was not aware of off therefore she might not be a candidate for the MRI. I will follow the neurological course. Thank you for asking us to assist in her care. MD NORMA Lucas/GIOVANA /5:32 PM /8:27 AM
[2016-10-29] MEDS: PARoxetine 25 MG CONTROLLED RELEASE TAB PO SCH (09:00)
[2016-10-29] MEDS ORDERED: GABAPENTIN 300 MG CAP PO SCH ×3 (09:00→21:00)
[2016-10-29] MEDS ORDERED: ASPIRIN 81 MG CHEW TAB PO SCH (09:00)
[2016-10-29] MEDS: SODIUM CHLORIDE 0.9% FLUSH 5 ML FLUSH IVF SCH ×2 (09:04→20:30)
[2016-10-29] MEDS: ASPIRIN 325 MG TAB PO SCH (09:05)
[2016-10-29] MEDS: METOPROLOL TARTRATE 50 MG TAB PO SCH ×2 (09:05→20:30)
[2016-10-29] MEDS: LISINOPRIL 10 MG TAB PO SCH (09:06)
[2016-10-29] MEDS: CLOPIDOGREL 75 MG TAB PO SCH (09:06)
[2016-10-29] MEDS: TOPIRAMATE 25 MG TAB PO SCH ×2 (09:07→20:30)
[2016-10-29] MEDS: INSULIN DETEMIR 100 UNITS/ML VIAL SQ SCH (09:08)
[2016-10-29 10:05] LABS: HDL CHOLESTEROL 48.3 MG/DL (40.0-60.0); LDL CHOLESTEROL 103 MG/DL (0-99)
--- NOTE | 2016-10-29 10:35 | HHI.PR ---
Review/Management Daily Summary doing better per family, seems back to baseline! mri as above ldl too high, goal would be below 60 asa and plavix otherwise pending echo Subjective Subjective Comments No acute events reported No headache No chest pain No dyspnea Active Medications Current Medications Medications (Trade) Dose Ordered Sig/Ashu Route Start Time Stop Time Status Last Admin (NS Flush) 2 ml BID IVF 10/28/16 21:00 10/29/16 09:04 (NS Flush) 2 ml UNSCH PRN IVF 10/28/16 14:15 (Vasotec Inj) 1.25 mg Q4H PRN IV 10/28/16 14:15 (Pravachol) 40 mg HS PO 10/28/16 21:00 10/28/16 21:08 (D50w (Vial) Inj) 25 ml UNSCH PRN IV PUSH 10/28/16 14:15 (Glucagon Inj) 1 mg UNSCH PRN IM/SQ 10/28/16 14:15 (Norvasc) 10 mg DAILY PO 10/29/16 09:00 10/29/16 09:06 (Aspirin) 325 mg DAILY PO 10/29/16 09:00 10/29/16 09:05 (Plavix) 75 mg DAILY PO 10/29/16 09:00 10/29/16 09:06 (Levemir Inj) 22 units DAILY SQ 10/29/16 09:00 10/29/16 09:08 (Prinivil) 10 mg DAILY PO 10/29/16 09:00 10/29/16 09:06 (Lopressor) 50 mg BID PO 10/28/16 21:00 10/29/16 09:05 (Paxil Cr) 25 mg DAILY PO 10/29/16 09:00 (Topamax) 50 mg BID PO 10/28/16 21:00 10/29/16 09:07 (Desyrel) 50 mg HS PO 10/28/16 21:00 10/28/16 21:09 (Pepcid) 40 mg HS PO 10/28/16 21:00 10/28/16 21:08 (Neurontin) 600 mg HS PO 10/29/16 21:00 (Neurontin) 300 mg TID@06,12,18 PO 10/29/16 12:00 Allergies Allergies Coded Allergies Latex (Verified Allergy, Intermediate, ITCHING, 08/10/16) Adhesives (Verified Allergy, Mild, RASH/ITCHING, 08/10/16) Bee Sting (Verified Allergy, Unknown, SHORTNESS OF BREATH, 08/10/16) Exam I&O / VS 10/28/16 10/28/16 10/29/16 15:00 23:00 07:00 Intake Total 840 ml Balance 840 ml Intake Oral 840 ml # Voids 2 2 Vital Signs Date Time Temp Pulse Resp B/P Pulse Ox O2 Delivery O2 Flow Rate FiO2 10/29/16 04:00 98.3 62 16 110/72 95 10/29/16 02:11 97.7 60 20 105/62 93 10/28/16 20:30 96 21 10/28/16 20:11 98.0 94 20 145/79 94 10/28/16 16:31 97 21 10/28/16 16:10 120/76 133/96 135/78 10/28/16 15:54 97.6 86 20 135/78 98 10/28/16 11:30 97.7 76 20 125/72 98 10/28/16 10:44 76 18 124/65 98 Room Air Objective Radiology Results Last [address] 10/28/16 0858 Signed Impressions: Service Date/Time: Friday, October 28, 2016 09:01 - CONCLUSION: Indeterminate age low density left hemisphere region of the basal ganglia and internal capsule extending up into the centrum semi-ovale. This is of indeterminate chronicity. There is no mass effect or atrophy in this region. Additionally appreciated is a calvarial defect in the posterior right frontal region apparently secondary to a prior shunt which has been removed Reji Shelton MD Chest X-Ray 10/28/16 0858 Signed Impressions: Service Date/Time: Friday, October 28, 2016 09:15 - CONCLUSION: 1. No acute cardiopulmonary findings. Louie Alavrenga MD Head Magnetic Resonance Angiography 10/28/16 0000 Signed Impressions: Service Date/Time: Friday, October 28, 2016 19:58 - CONCLUSION: Slight atherosclerotic changes of distal branches bilaterally, otherwise unremarkable. Justine Singleton MD Carotid Artery Ultrasound 10/28/16 0000 Signed Impressions: Service Date/Time: Friday, October 28, 2016 15:47 - CONCLUSION: No evidence of anatomic or physiologic stenosis. Rjei Shelton MD Brain MRI 10/28/16 0000 Signed Impressions: Service Date/Time: Friday, October 28, 2016 19:58 - CONCLUSION: Acute nonhemorrhagic infarction involving the left basal ganglia extending into the henderson radiata. Aric More Jr., MD Micro and Labs Laboratory Tests Test 10/28/16 10/28/16 10/28/16 10/29/16 16:25 19:00 20:55 06:47 Troponin I LESS THAN 0.02 LESS THAN 0.02 LESS THAN 0.02 Urine Color YELLOW Urine Turbidity SLIGHT Urine pH 6.5 Urine Specific [place] 1.020 Urine Protein NEG Urine Glucose (UA) NEG Urine Ketones NEG Urine Occult Blood NEG Urine Nitrite NEG Urine Bilirubin NEG Urine Leukocyte Esterase TRACE Urine RBC 0-2 Urine WBC 6-8 Urine Squamous Epithelial 6-8 Cells Urine Bacteria FEW Microscopic Urinalysis Comment CULTURE INDICATED White Blood Count 7.4 Red Blood Count 4.77 Hemoglobin 13.7 Hematocrit 40.7 Mean Corpuscular Volume 85.2 Mean Corpuscular Hemoglobin 28.6 Mean Corpuscular Hemoglobin 33.6 Concent Red Cell Distribution Width 12.4 Platelet Count 276 Mean Platelet Volume 8.5 Neutrophils (%) (Auto) 56.9 Lymphocytes (%) (Auto) 30.1 Monocytes (%) (Auto) 7.8 Eosinophils (%) (Auto) 4.0 Basophils (%) (Auto) 1.2 Neutrophils # (Auto) 4.2 Lymphocytes # (Auto) 2.2 Monocytes # (Auto) 0.6 Eosinophils # (Auto) 0.3 Basophils # (Auto) 0.1 CBC Comment DIFF FINAL Differential Comment Sodium Level 140 Potassium Level 4.0 Chloride Level 107 Carbon Dioxide Level 23.6 Anion Gap 9 Blood Urea Nitrogen 16 Creatinine 0.77 Estimat Glomerular Filtration 78 Rate Random Glucose 158 Calcium Level 8.8 Triglycerides Level 129 Cholesterol Level 177 LDL Cholesterol 103 HDL Cholesterol 48.3 Cholesterol/HDL Ratio 3.66 Date/Time Procedure Status Source Growth 10/28/16 19:00 Urine Culture Received Urine Clean Catch Pending Irvin Rodriguez MD Oct 29, 2016 10:35
--- NOTE | 2016-10-29 11:01 | HHI.PR ---
Subjective Remarks Feeling better, broke partial bridge last night and feels she is speaking poorly , but says it's at baseline. Objective Vital Signs Date Time Temp Pulse Resp B/P Pulse Ox O2 Delivery O2 Flow Rate FiO2 10/29/16 04:00 98.3 62 16 110/72 95 10/29/16 02:11 97.7 60 20 105/62 93 10/28/16 20:30 96 21 10/28/16 20:11 98.0 94 20 145/79 94 10/28/16 16:31 97 21 10/28/16 16:10 120/76 133/96 135/78 10/28/16 15:54 97.6 86 20 135/78 98 10/28/16 11:30 97.7 76 20 125/72 98 I/O 10/28/16 10/28/16 10/28/16 10/29/16 10/29/16 10/29/16 07:00 15:00 23:00 07:00 15:00 23:00 Intake Total 840 ml Balance 840 ml Intake Oral 840 ml # Voids 2 2 Result Diagram: 10/29/16 0647 10/29/16 0647 Imaging Last [address] 10/28/16 0858 Signed Impressions: Service Date/Time: Friday, October 28, 2016 09:01 - CONCLUSION: Indeterminate age low density left hemisphere region of the basal ganglia and internal capsule extending up into the centrum semi-ovale. This is of indeterminate chronicity. There is no mass effect or atrophy in this region. Additionally appreciated is a calvarial defect in the posterior right frontal region apparently secondary to a prior shunt which has been removed Reji Shelton MD Chest X-Ray 10/28/16 0858 Signed Impressions: Service Date/Time: Friday, October 28, 2016 09:15 - CONCLUSION: 1. No acute cardiopulmonary findings. Louie Alvarenga MD Head Magnetic Resonance Angiography 10/28/16 0000 Signed Impressions: Service Date/Time: Friday, October 28, 2016 19:58 - CONCLUSION: Slight atherosclerotic changes of distal branches bilaterally, otherwise unremarkable. Justine Singleton MD Carotid Artery Ultrasound 10/28/16 0000 Signed Impressions: Service Date/Time: Friday, October 28, 2016 15:47 - CONCLUSION: No evidence of anatomic or physiologic stenosis. Reji Shelton MD Brain MRI 10/28/16 0000 Signed Impressions: Service Date/Time: Friday, October 28, 2016 19:58 - CONCLUSION: Acute nonhemorrhagic infarction involving the left basal ganglia extending into the henderson radiata. Aric More Jr., MD Objective Remarks GENERAL: Well-nourished, well-developed patient. SKIN: Warm and dry. HEAD: Normocephalic. EYES: No scleral icterus. No injection or drainage. NECK: Supple, trachea midline. No JVD or lymphadenopathy. CARDIOVASCULAR: Regular rate and rhythm without murmurs, gallops, or rubs. RESPIRATORY: Breath sounds equal bilaterally. No accessory muscle use. GASTROINTESTINAL: Abdomen soft, non-tender, nondistended. EXTREMITIES: No cyanosis, trace dependent edema. NEUROLOGICAL: Awake, alert, and oriented x 3. Non-focal. Slight slurred speech. Medications and IVs Current Medications Medications (Trade) Dose Ordered Sig/Ashu Route Start Time Stop Time Status Last Admin (NS Flush) 2 ml BID IVF 10/28/16 21:00 10/29/16 09:04 (NS Flush) 2 ml UNSCH PRN IVF 10/28/16 14:15 (Vasotec Inj) 1.25 mg Q4H PRN IV 10/28/16 14:15 (Pravachol) 40 mg HS PO 10/28/16 21:00 10/28/16 21:08 (D50w (Vial) Inj) 25 ml UNSCH PRN IV PUSH 10/28/16 14:15 (Glucagon Inj) 1 mg UNSCH PRN IM/SQ 10/28/16 14:15 (Norvasc) 10 mg DAILY PO 10/29/16 09:00 10/29/16 09:06 (Aspirin) 325 mg DAILY PO 10/29/16 09:00 10/29/16 09:05 (Plavix) 75 mg DAILY PO 10/29/16 09:00 10/29/16 09:06 (Levemir Inj) 22 units DAILY SQ 10/29/16 09:00 10/29/16 09:08 (Prinivil) 10 mg DAILY PO 10/29/16 09:00 10/29/16 09:06 (Lopressor) 50 mg BID PO 10/28/16 21:00 1/28/17 09:05 (Paxil Cr) 25 mg DAILY PO 10/29/16 09:00 (Topamax) 50 mg BID PO 10/28/16 21:00 10/29/16 09:07 (Desyrel) 50 mg HS PO 10/28/16 21:00 10/28/16 21:09 (Pepcid) 40 mg HS PO 10/28/16 21:00 10/28/16 21:08 (Neurontin) 600 mg HS PO 10/29/16 21:00 (Neurontin) 300 mg TID@06,12,18 PO 10/29/16 12:00 Assessment and Plan Problem List: (1) Dysarthria Status: Acute Plan: Improving per and nearly baseline per pt. Neuro consulted (2) Acute focal neurological deficit, onset within 3-24 hours Status: Acute Plan: No longer dizzy. Neuro consult appreciated, echo pending, carotid US negative. MRI notes acute infarct. (3) Diabetes Status: Chronic Plan: Accuchecks, SSI, carb controlled diet. (4) CVA (cerebral vascular accident) Status: Chronic Plan: History of basal ganglia CVA with right residual weakness, right mouth droop and dysarthria with new acute infarct. Pt. requests inpatient rehab at [facility]. Consult ordered. (5) History of loop recorder Status: Chronic Plan: Interrogation ordered to evaluate arrhythmias. (6) Coronary artery disease Status: Chronic Plan: Her last catheterization was done in 2013. She states she has had a loop recorded implanted to monitor for arrhythmias. Once verified, an interrogation will be requested. Assessment and Plan D/W pt., RN, Dr. Haywood. Problem Qualifiers (1) Diabetes: Qualified Code: E11.59 - Type 2 diabetes mellitus with other circulatory complication, unspecified shelter insulin use status (2) CVA (cerebral vascular accident): (3) Coronary artery disease: Rose Dhillon Oct 29, 2016 11:01
[2016-10-29] MEDS: GABAPENTIN 300 MG CAP PO SCH ×2 (11:15→17:11)
--- NOTE | 2016-10-29 12:18 | EKG ---
Date Performed: 10/28/2016 Time Performed: 09:33:26 PTAGE: 51 years EKG: Sinus rhythm Normal ECG PREVIOUS TRACING : 07/05/2011 12.41 Compared to prior tracing no significant change DOCTOR: Roel Bahena Interpretating Date/Time 10/29/2016 12:16:34
[2016-10-29 12:58] LABS: HEMOGLOBIN A1a 1.8 %; HEMOGLOBIN A1b 2.5 %; HEMOGLOBIN Ao 81.2 %; HEMOGLOBIN LA1C 2.3 %; HEMOGLOBIN P3 4.1 %
--- NOTE | 2016-10-29 17:41 | EC ---
Study Study Date:10/29/2016 STUDY CONCLUSIONS SUMMARY - Left ventricle: The cavity size was normal. Wall thickness was normal. Systolic function was normal. The estimated ejection fraction was 60%. Wall motion was normal; there were no regional wall motion abnormalities. - Mitral valve: Mild regurgitation. - Tricuspid valve: Mild regurgitation. If LV function is below 40, please consider prescribing an ACEI or ARB or document rationale for non-use. PROCEDURE DATA STUDY STATUS: Elective. Procedure: Transthoracic echocardiography. Image quality was good. Scanning was performed from the parasternal, apical, and subcostal acoustic windows. Study completion: The patient tolerated the procedure well. Transthoracic echocardiography. M-mode, complete 2D, complete spectral Doppler, and color Doppler. Patient status: Inpatient. CARDIAC ANATOMY LEFT VENTRICLE: The cavity size was normal. Wall thickness was normal. Systolic function was normal. The estimated ejection fraction was 60%. Wall motion was normal; there were no regional wall motion abnormalities. AORTIC VALVE: Trileaflet; normal thickness leaflets. Doppler: Transvalvular velocity was within the normal range. There was no stenosis. No regurgitation. AORTA: Aortic root: The aortic root was normal in size. MITRAL VALVE: Structurally normal valve. Doppler: Transvalvular velocity was within the normal range. There was no evidence for stenosis. Mild regurgitation. LEFT ATRIUM: The atrium was normal in size. RIGHT VENTRICLE: The cavity size was normal. Wall thickness was normal. PULMONIC VALVE: Doppler: Transvalvular velocity was within the normal range. There was no evidence for stenosis. No regurgitation. TRICUSPID VALVE: Structurally normal valve. Doppler: Transvalvular velocity was within the normal range. Mild regurgitation. PULMONARY ARTERY: The main pulmonary artery was normal-sized. Systolic pressure was within the normal range. RIGHT ATRIUM: The atrium was normal in size. PERICARDIUM: There was no pericardial effusion. SYSTEMIC VEINS: Inferior vena cava: The vessel was normal in size. BASIC MEASUREMENTS ADULT NORMAL Left ventricle LV internal dimension, ED, chordal level, 46.9 mm 43-52 PLAX LV internal dimension, ES, chordal level, 34.1 mm 23-38 PLAX Fractional shortening, chordal level, PLAX *27 % >29 LV posterior wall thickness, ED 11.2 mm IVS/LVPW ratio, ED 1.12 <1.3 Ventricular septum Septal thickness, ED 12.5 mm Aortic valve Leaflet separation 20 mm 15-26 Right ventricle RV internal dimension, ED, PLAX 28.4 mm 19-38 BASIC MEASUREMENTS ADULT NORMAL Aortic valve Leaflet separation 20 mm 15-26 Aorta Root diameter, ED 28 mm 20-37 Left atrium Anterior-posterior dimension, ES 24 mm 19-40 LA/aortic root ratio 0.86 LEGEND: Mean values are shown as u=mean value. Asterisk (*) petit values outside specified normal range. Prepared and signed by Ernie Olea [id number]
[2016-10-29] MEDS ORDERED: REST15CA PO (20:26)
[2016-10-29] MEDS ORDERED: OXYC-395 PO (20:27)
[2016-10-29] MEDS: traZODone HCL 50 MG TAB PO SCH (20:30)
[2016-10-29] MEDS: PRAVASTATIN SOD 40 MG TAB PO SCH (20:30)
[2016-10-29] MEDS: FAMOTIDINE 20 MG TAB PO SCH (20:31)
[2016-10-29] MEDS ORDERED: ACETAMINOPHEN 325 MG TAB PO PRN (21:30)
[2016-10-29] MEDS: TEMAZEPAM 15 MG CAP PO PRN (22:16)
[2016-10-29] MEDS: ACETAMINOPHEN/HYDROcodone 325 MG/7.5 MG TAB PO PRN (22:17)
[2016-10-30] VITALS (7 sets, daily range): BP systolic 114–130; BP diastolic 50–81; PULSE 62–100; RESP 14–24; TEMP 96.9–98.1; O2SAT 96–98
[2016-10-30] MEDS: GABAPENTIN 300 MG CAP PO SCH (06:11)
[2016-10-30] MEDS: INSULIN ASPART SUPPLEMENTAL SCALE SQ SCH ×4 (06:14→21:45)
[2016-10-30] MEDS: LISINOPRIL 10 MG TAB PO SCH (08:47)
[2016-10-30] MEDS: TOPIRAMATE 25 MG TAB PO SCH ×2 (08:47→21:44)
[2016-10-30] MEDS: INSULIN DETEMIR 100 UNITS/ML VIAL SQ SCH (08:47)
[2016-10-30] MEDS: CLOPIDOGREL 75 MG TAB PO SCH (08:47)
[2016-10-30] MEDS: METOPROLOL TARTRATE 50 MG TAB PO SCH ×2 (08:47→21:43)
[2016-10-30] MEDS: ASPIRIN 325 MG TAB PO SCH (08:48)
[2016-10-30] MEDS: PARoxetine 25 MG CONTROLLED RELEASE TAB PO SCH (08:48)
[2016-10-30] MEDS: SODIUM CHLORIDE 0.9% FLUSH 5 ML FLUSH IVF SCH ×2 (08:49→21:43)
--- NOTE | 2016-10-30 12:09 | HHI.PR ---
Subjective Remarks Feeling better, near baseline. Objective Vital Signs Date Time Temp Pulse Resp B/P Pulse Ox O2 Delivery O2 Flow Rate FiO2 10/30/16 09:07 98 21 10/30/16 08:00 96.9 69 24 117/71 98 10/30/16 04:28 97.7 82 14 130/77 98 10/30/16 00:00 97.0 100 16 124/81 96 10/29/16 23:31 20 10/29/16 20:05 96 21 10/29/16 20:00 76 10/29/16 20:00 96.8 80 14 121/76 94 10/29/16 16:00 96.4 63 20 111/71 97 I/O 10/29/16 10/29/16 10/29/16 10/30/16 10/30/16 10/30/16 07:00 15:00 23:00 07:00 15:00 23:00 Intake Total 800 ml 480 ml Balance 800 ml 480 ml Intake Oral 800 ml 480 ml # Voids 2 4 4 # Bowel Movements 0 Result Diagram: 10/29/16 0647 10/29/16 0647 Objective Remarks GENERAL: Obese, well-developed patient. SKIN: Warm and dry. HEAD: Normocephalic. EYES: No scleral icterus. No injection or drainage. NECK: Supple, trachea midline. No JVD or lymphadenopathy. CARDIOVASCULAR: Regular rate and rhythm without murmurs, gallops, or rubs. RESPIRATORY: Breath sounds equal bilaterally. No accessory muscle use. GASTROINTESTINAL: Abdomen soft, non-tender, nondistended. EXTREMITIES: No cyanosis, trace dependent edema. Residual Right weakness. NEUROLOGICAL: Awake, alert, and oriented x 3. Non-focal. Slight slurred speech. Medications and IVs Current Medications Medications (Trade) Dose Ordered Sig/Ashu Route Start Time Stop Time Status Last Admin (NS Flush) 2 ml BID IVF 10/28/16 21:00 10/29/16 20:30 (NS Flush) 2 ml UNSCH PRN IVF 10/28/16 14:15 (Vasotec Inj) 1.25 mg Q4H PRN IV 10/28/16 14:15 (Pravachol) 40 mg HS PO 10/28/16 21:00 10/29/16 20:30 (D50w (Vial) Inj) 25 ml UNSCH PRN IV PUSH 1/27/17 14:15 (Glucagon Inj) 1 mg UNSCH PRN IM/SQ 10/28/16 14:15 (Norvasc) 10 mg DAILY PO 10/29/16 09:00 10/30/16 08:47 (Aspirin) 325 mg DAILY PO 10/29/16 09:00 10/30/16 08:48 (Plavix) 75 mg DAILY PO 10/29/16 09:00 10/30/16 08:47 (Levemir Inj) 22 units DAILY SQ 10/29/16 09:00 10/30/16 08:47 (Prinivil) 10 mg DAILY PO 10/29/16 09:00 10/30/16 08:47 (Lopressor) 50 mg BID PO 10/28/16 21:00 10/30/16 08:47 (Paxil Cr) 25 mg DAILY PO 10/29/16 09:00 (Topamax) 50 mg BID PO 10/28/16 21:00 10/30/16 08:47 (Desyrel) 50 mg HS PO 10/28/16 21:00 10/29/16 20:30 (Pepcid) 40 mg HS PO 10/28/16 21:00 10/29/16 20:31 (Neurontin) 600 mg HS PO 10/29/16 21:00 10/29/16 20:30 (Neurontin) 300 mg TID@06,12,18 PO 10/29/16 12:00 10/30/16 06:11 (Tylenol) 650 mg Q4H PRN PO 10/29/16 21:30 (Restoril) 15 mg HS PRN PO 10/29/16 22:15 10/29/16 22:16 ([place] 7.5-325 Mg) 1 tab Q4H PRN PO 10/29/16 22:15 10/29/16 22:17 Assessment and Plan Problem List: (1) Dysarthria Status: Acute Plan: Improving per and nearly baseline per pt. Neuro following, pending EEG and repeat head MRI w/o contrast. (2) Acute focal neurological deficit, onset within 3-24 hours Status: Acute Plan: No longer dizzy. Neuro consult appreciated, echo negative, carotid US negative. MRI notes acute infarct. (3) Diabetes Status: Chronic Plan: Accuchecks, SSI, carb controlled diet. (4) CVA (cerebral vascular accident) Status: Chronic Plan: History of basal ganglia CVA with right residual weakness, right mouth droop and dysarthria with new acute infarct. Pt. [facility]. Consult ordered. (5) History of loop recorder Status: Chronic Plan: Interrogation completed via remote, showing some bradycardia in September but no other arrhythmias, specifically no afib found. (6) Coronary artery disease Status: Chronic Plan: Her last catheterization was done in 2013. (7) Diabetic neuropathy Status: Chronic Plan: C/O severe foot pain. Had been prescribed 400 mg TID at home but had been taking all 4 pills at night (1600 mg/QD). Requesting dosing be changed to home regimen. Assessment and Plan Assessing suitability for rehab, PT, OT evals in progress. Pt. [facility] if possible d/t previous admission. D/W pt., , RN, Dr. Haywood. Problem Qualifiers (1) Diabetes: Qualified Code: E11.59 - Type 2 diabetes mellitus with other circulatory complication, unspecified computer terminal operator insulin use status (2) CVA (cerebral vascular accident): (3) Coronary artery disease: (4) Diabetic neuropathy: Rose Dhillon Oct 30, 2016 12:09
[2016-10-30] MEDS: ACETAMINOPHEN/HYDROcodone 325 MG/7.5 MG TAB PO PRN ×2 (17:23→21:44)
[2016-10-30] MEDS: traZODone HCL 50 MG TAB PO SCH (21:43)
[2016-10-30] MEDS: PRAVASTATIN SOD 40 MG TAB PO SCH (21:43)
[2016-10-30] MEDS: TEMAZEPAM 15 MG CAP PO PRN (21:43)
[2016-10-30] MEDS: FAMOTIDINE 20 MG TAB PO SCH (21:44)
[2016-10-30] MEDS: GABAPENTIN 400 MG CAP PO SCH (21:45)
[2016-10-31] VITALS (8 sets, daily range): BP systolic 83–174; BP diastolic 36–86; PULSE 51–76; RESP 18–20; TEMP 95.5–98; O2SAT 92–99
[2016-10-31] MEDS: INSULIN ASPART SUPPLEMENTAL SCALE SQ SCH ×4 (06:03→21:08)
[2016-10-31] MEDS: PARoxetine 25 MG CONTROLLED RELEASE TAB PO SCH (09:00)
[2016-10-31] MEDS: INSULIN DETEMIR 100 UNITS/ML VIAL SQ SCH (09:36)
[2016-10-31] MEDS: SODIUM CHLORIDE 0.9% FLUSH 5 ML FLUSH IVF SCH ×2 (09:37→20:38)
[2016-10-31] MEDS: METOPROLOL TARTRATE 50 MG TAB PO SCH ×2 (09:38→20:39)
[2016-10-31] MEDS: ASPIRIN 325 MG TAB PO SCH (09:38)
[2016-10-31] MEDS: TOPIRAMATE 25 MG TAB PO SCH ×2 (09:39→20:38)
[2016-10-31] MEDS: LISINOPRIL 10 MG TAB PO SCH (09:39)
[2016-10-31] MEDS: CLOPIDOGREL 75 MG TAB PO SCH (09:39)
--- NOTE | 2016-10-31 18:05 | HHI.PR ---
Subjective Remarks cva stable Objective Vital Signs Date Time Temp Pulse Resp B/P Pulse Ox O2 Delivery O2 Flow Rate FiO2 10/31/16 17:36 97.5 63 18 83/36 98 10/31/16 15:00 76 18 112/81 10/31/16 12:23 96.5 70 18 174/86 92 10/31/16 09:00 96.8 68 18 120/79 98 10/31/16 06:30 51 10/31/16 04:00 96.3 55 18 102/66 97 10/31/16 00:00 95.5 62 18 98/54 94 10/30/16 22:48 18 10/30/16 20:00 97.9 77 18 122/78 98 10/30/16 20:00 95 I/O 10/30/16 10/30/16 10/30/16 10/31/16 10/31/16 10/31/16 07:00 15:00 23:00 07:00 15:00 23:00 Intake Total 480 ml 840 ml 240 ml 250 ml 620 ml Balance 480 ml 840 ml 240 ml 250 ml 620 ml Intake Oral 480 ml 840 ml 240 ml 250 ml 620 ml # Voids 4 3 2 4 # Bowel Movements 0 1 Result Diagram: 10/29/1647 10/29/16 0647 Objective Remarks GENERAL: SKIN: Warm and dry. HEAD: Atraumatic. Normocephalic. EYES: Pupils equal and round. No scleral icterus. No injection or drainage. ENT: No nasal bleeding or discharge. Mucous membranes pink and moist. NECK: Trachea midline. No JVD. CARDIOVASCULAR: Regular rate and rhythm. RESPIRATORY: No accessory muscle use. Clear to auscultation. Breath sounds equal bilaterally. GASTROINTESTINAL: Abdomen soft, non-tender, nondistended. Hepatic and splenic margins not palpable. MUSCULOSKELETAL: Extremities without clubbing, cyanosis, or edema. No obvious deformities. NEUROLOGICAL: Awake and alert. No obvious cranial nerve deficits. Motor grossly within normal limits. Five out of 5 muscle strength in the arms and legs. Normal speech. PSYCHIATRIC: Appropriate mood and affect; insight and judgment normal. Medications and IVs Current Medications Medications (Trade) Dose Ordered Sig/Ashu Route PRN Reason Start Time Stop Time Status Last Admin Dose Admin IV Flush (NS Flush) 2 ml BID IVF 10/28/16 21:00 10/31/16 09:37 IV Flush (NS Flush) 2 ml UNSCH PRN IVF FLUSH AFTER USING IV ACCESS 10/28/16 14:15 Enalaprilat (Vasotec Inj) 1.25 mg Q4H PRN IV For SBP >/= 180 or DBP >/= 100 10/28/16 14:15 Pravastatin Sodium (Pravachol) 40 mg HS PO 10/28/16 21:00 10/30/16 21:43 Dextrose (D50w (Vial) Inj) 25 ml UNSCH PRN IV PUSH HYPOGLYCEMIA-SEE COMMENTS 10/28/16 14:15 Glucagon (Glucagon Inj) 1 mg UNSCH PRN IM/SQ HYPOGLYCEMIA-SEE COMMENTS 10/28/16 14:15 Amlodipine Besylate (Norvasc) 10 mg DAILY PO 10/29/16 09:00 10/31/16 09:38 Aspirin (Aspirin) 325 mg DAILY PO 10/29/16 09:00 10/31/16 09:38 Clopidogrel Bisulfate (Plavix) 75 mg DAILY PO 10/29/16 09:00 10/31/16 09:39 Insulin Detemir (Levemir Inj) 22 units DAILY SQ 10/29/16 09:00 10/31/16 09:36 Lisinopril (Prinivil) 10 mg DAILY PO 10/29/16 09:00 10/31/16 09:39 Metoprolol Tartrate (Lopressor) 50 mg BID PO 10/28/16 21:00 10/31/16 09:38 Topiramate (Topamax) 50 mg BID PO 10/28/16 21:00 10/31/16 09:39 Trazodone HCl (Desyrel) 50 mg HS PO 10/28/16 21:00 10/30/16 21:43 Famotidine (Pepcid) 40 mg HS PO 10/28/16 21:00 10/30/16 21:44 Acetaminophen (Tylenol) 650 mg Q4H PRN PO PAIN SCALE 1 TO 5 10/29/16 21:30 Temazepam (Restoril) 15 mg HS PRN PO INSOMNIA 10/29/16 22:15 10/30/16 21:43 Acetaminophen/ Hydrocodone Bitart ([place] 7.5-325 Mg) 1 tab Q4H PRN PO PAIN SCALE 1 TO 10 10/29/16 22:15 10/30/16 21:44 Gabapentin (Neurontin) 1,600 mg HS PO 10/30/16 21:00 10/30/16 21:45 Paroxetine HCl (Paxil Cr) 25 mg DAILY PO 11/01/16 09:00 Assessment and Plan Problem List: (1) Diabetes Status: Chronic (2) CVA (cerebral vascular accident) Status: Chronic Discharge Planning home with op therapy Problem Qualifiers (1) Diabetes: Qualified Code: E11.59 - Type 2 diabetes mellitus with other circulatory complication, unspecified senior living insulin use status (2) CVA (cerebral vascular accident): Jitendra Haywood DO Oct 31, 2016 18:05
[2016-10-31] MEDS: GABAPENTIN 400 MG CAP PO SCH (20:38)
[2016-10-31] MEDS: PRAVASTATIN SOD 40 MG TAB PO SCH (20:38)
[2016-10-31] MEDS: traZODone HCL 50 MG TAB PO SCH (20:39)
[2016-10-31] MEDS: FAMOTIDINE 20 MG TAB PO SCH (20:39)
[2016-10-31] MEDS: ACETAMINOPHEN/HYDROcodone 325 MG/7.5 MG TAB PO PRN (20:42)
[2016-10-31] MEDS: TEMAZEPAM 15 MG CAP PO PRN (23:24)
[2016-11-01] VITALS: BP 109/69; PULSE 59; RESP 16; TEMP 97.3; O2SAT 96
[2016-11-01 04:00] VITALS: BP 100/67; PULSE 53; RESP 16; TEMP 96.3; O2SAT 97
[2016-11-01] MEDS: INSULIN ASPART SUPPLEMENTAL SCALE SQ SCH (06:34)
[2016-11-01 07:00] VITALS: PULSE 96
[2016-11-01 08:09] VITALS: BP 141/71; PULSE 65; RESP 18; TEMP 95.6; O2SAT 100
[2016-11-01] MEDS: SODIUM CHLORIDE 0.9% FLUSH 5 ML FLUSH IVF SCH (08:45)
[2016-11-01] MEDS: LISINOPRIL 10 MG TAB PO SCH (08:46)
[2016-11-01] MEDS: CLOPIDOGREL 75 MG TAB PO SCH (08:46)
[2016-11-01] MEDS: INSULIN DETEMIR 100 UNITS/ML VIAL SQ SCH (08:46)
[2016-11-01] MEDS: TOPIRAMATE 25 MG TAB PO SCH (08:47)
[2016-11-01] MEDS: ASPIRIN 325 MG TAB PO SCH (08:47)
[2016-11-01] MEDS: METOPROLOL TARTRATE 50 MG TAB PO SCH (08:47)
[2016-11-01] MEDS ORDERED: PARoxetine HCL 12.5 MG EXTENDED RELEASE TAB PO SCH (09:00)
--- NOTE | 2016-11-01 09:49 | HHI.FF ---
Face to Face Verification Diagnosis: (1) CVA (cerebral vascular accident) Physical Therapy Order: Evaluate and Treat Occupational Therapy Order: Evaluate and Treat Speech Therapy Order: To Improve: Swallowing Home Health Nursing Order: Diabetic education Nursing assessment with vital signs Home Health Aide Order: To Assist In: Bathing and personal care, belt splicer and meal prep Assistant Athletic Trainer Order: To Evaluate: Support services I have seen patient Argenis Hernandez on 11/01/16. My clinical findings support the need for the requested home health care services because: Deconditioned w/ increased weakness Limited ability to care for self High risk of falls I certify that my clinical findings support that this patient is homebound because: Impaired cognitive ability/safety Unsteady gait/balance Rose Dhillon Nov 01, 2016 09:49
--- NOTE | 2016-11-09 16:19 | HHI.DS ---
Discharge Summary Admission Date Oct 28, 2016 at 10:23 Discharge Date: Nov 01, 2016 Admitting Diagnosis acute neurologic deficit with dysarthria, rule out CVA (1) Dysarthria Diagnosis: Principal (2) Diabetes Diagnosis: Secondary (3) CVA (cerebral vascular accident) Diagnosis: Principal (4) Chronic right shoulder pain Diagnosis: Secondary (5) Acute focal neurological deficit, onset within 3-24 hours Diagnosis: Principal (6) Diabetic neuropathy Diagnosis: Secondary Brief History Very pleasant 51 y/o female patient of Dr. Manuel who presented with worsening dysarthria, feeling disoriented, but aware, dizziness and increasing right weakness. Some of these symptoms have improved since admission but she remains with some increase in her baseline dysarthria and residual right arm weakness from a previous left basal ganglia CVA. She has a history of pseudotumor cerebri, previous CVA's, TIA's, CAD/OH/Stent. She has been admitted for continued dysarthria and right weakness pending neuro eval. Imaging Last Impressions Head CT 10/28/16857 Signed Impressions: Service Date/Time: Friday, October 28, 2016 09:01 - CONCLUSION: Indeterminate age low density left hemisphere region of the basal ganglia and internal capsule extending up into the centrum semi-ovale. This is of indeterminate chronicity. There is no mass effect or atrophy in this region. Additionally appreciated is a calvarial defect in the posterior right frontal region apparently secondary to a prior shunt which has been removed Reji Shelton MD Chest X-Ray 10/28/16857 Signed Impressions: Service Date/Time: Friday, October 28, 2016 09:15 - CONCLUSION: 1. No acute cardiopulmonary findings. Louie Alvarenga MD Head Magnetic Resonance Angiography 10/28/16 Signed Impressions: Service Date/Time: Friday, October 28, 2016 19:58 - CONCLUSION: Slight atherosclerotic changes of distal branches bilaterally, otherwise unremarkable. Justine Singleton MD Carotid Artery Ultrasound 10/28/16 Signed Impressions: Service Date/Time: Friday, October 28, 2016 15:47 - CONCLUSION: No evidence of anatomic or physiologic stenosis. Reji Shelton MD Brain MRI 10/28/16 Signed Impressions: Service Date/Time: Friday, October 28, 2016 19:58 - CONCLUSION: Acute nonhemorrhagic infarction involving the left basal ganglia extending into the henderson radiata. Aric More Jr., MD PE at Discharge GENERAL: Obese, well-developed patient. SKIN: Warm and dry. HEAD: Normocephalic. EYES: No scleral icterus. No injection or drainage. NECK: Supple, trachea midline. No JVD or lymphadenopathy. CARDIOVASCULAR: Regular rate and rhythm without murmurs, gallops, or rubs. RESPIRATORY: Breath sounds equal bilaterally. No accessory muscle use. GASTROINTESTINAL: Abdomen soft, non-tender, nondistended. EXTREMITIES: No cyanosis, trace dependent edema. Residual Right weakness. NEUROLOGICAL: Awake, alert, and oriented x 3. Non-focal. Slight slurred speech. Hospital Course Admitted with dysarthria and AMS, she improved over the first 24 hours. She was evaluated by neurology and underwent imaging studies as noted above. Acute CVA was noted on MRI and followup CT done. She was cleared by neurology for discharge home with outpatient followup. She was evaluated by inpatient rehab but did not qualify so was discharged with outpatient PT/OT/TUYERE FITTER and f/u with Dr. Haywood. Pt Condition on Discharge: Stable Discharge Disposition: Discharge Home Discharge Instructions DIET: Follow Instructions for: Heart Healthy Diet Activities you can perform: Regular-No Restrictions Activities to avoid: Strenuous Activity Additional Activity Instructio: PT, OT, TUYERE FITTER at home Follow up Referrals: SNF/[facility]/ with [facility] Continued Medications: Amlodipine (Amlodipine) 10 Mg Tab 10 MG PO DAILY Blood Pressure Management #30 Ref 0 TAB Aspirin (Aspirin) 325 Mg Tab 325 MG PO DAILY #30 Ref 0 TAB Atorvastatin (Atorvastatin) 80 Mg Tab 80 MG PO HS Cholesterol Management #30 Ref 0 TAB Clopidogrel (Clopidogrel) 75 Mg Tab 75 MG PO DAILY Blood Clot Prevention #30 Ref 0 TAB Famotidine (Famotidine) 40 Mg Tab 40 MG PO HS #30 Ref 0 TAB Gabapentin (Gabapentin) 400 Mg Cap 400 CAP PO TID #30 Ref 0 CAP Insulin Detemir Inj (Levemir Inj) 1,000 unit/ 10 ML Vial 22 UNITS SQ DAILY Do not mix with any other Insulin. Blood Sugar Management Ref 0 VIAL Lisinopril (Lisinopril) 10 Mg Tab 10 MG PO DAILY #30 Ref 0 TAB Metoprolol Tartrate (Metoprolol Tartrate) 50 Mg Tab 50 MG PO BID #60 Ref 0 TAB Oxycodone (Oxycodone) 10 Mg Tab 10 MG PO Q6H PRN PAIN Ref 0 TAB Paroxetine ER (Paroxetine ER) 25 Mg Tab 25 MG PO DAILY #30 Ref 0 TAB Temazepam (Restoril) 15 Mg Cap 15 MG PO HS PRN INSOMNIA #30 Ref 0 CAP Topiramate (Topiramate) 50 Mg Tab 50 MG PO BID Control Seizures #60 Ref 0 TAB Trazodone (Trazodone) 50 Mg Tab 50 MG PO HS Control Depression #30 Ref 0 TAB Rose Dhillon Nov 09, 2016 16:19
== END 2016-11-01 12:08 | disposition home health service (06) ==
LOC: PHED 08:46 → PHEDA 10:23 → INTOOBSV 10:23 → PH3B 11:15
PROVIDERS: ADMIT Family Medicine; ATTEND Family Medicine
DX: I63.9 Cerebral infarction, unspecified (principal); R47.1 Dysarthria and anarthria; I69.351 Hemiplegia and hemiparesis following cerebral infarction affecting right dominant side; E11.40 Type 2 diabetes mellitus with diabetic neuropathy, unspecified; G62.9 Polyneuropathy, unspecified; I25.10 Atherosclerotic heart disease of native coronary artery without angina pectoris; I10 Essential (primary) hypertension; J18.9 Pneumonia, unspecified organism; G43.909 Migraine, unspecified, not intractable, without status migrainosus; L03.211 Cellulitis of face; M25.70 Osteophyte, unspecified joint; F41.9 Anxiety disorder, unspecified; E66.9 Obesity, unspecified; M25.511 Pain in right shoulder; G89.29 Other chronic pain; R82.79 Other abnormal findings on microbiological examination of urine; E78.5 Hyperlipidemia, unspecified; F31.9 Bipolar disorder, unspecified; J44.9 Chronic obstructive pulmonary disease, unspecified; G47.33 Obstructive sleep apnea (adult) (pediatric); Z79.4 Long term (current) use of insulin; I25.2 Old myocardial infarction; K21.9 Gastro-esophageal reflux disease without esophagitis; H91.90 Unspecified hearing loss, unspecified ear; Z95.5 Presence of coronary angioplasty implant and graft; Z79.82 Long term (current) use of aspirin; Z79.02 Long term (current) use of antithrombotics/antiplatelets; E78.00 Pure hypercholesterolemia, unspecified; Z87.891 Personal history of nicotine dependence; Z87.442 Personal history of urinary calculi
CPT/HCPCS: 70450; 70544; 70551; 71010; 80048; 80053; 80061; 81001; 82550; 82948; 83036; 84484; 85025; 85610; 85730; 87086; 92523; 93005; 93306; 93880; 94150; 97110; 97162; 97166; 97530; 97532; 99285; G0378; G8987; G8988; J1815

== ENCOUNTER 2018-02-26 21:31 | Emergency (ER) | payer MEDICARE ==
[~2018-02-26] VITALS: Ht 165.1 cm; Wt 104.5 kg
[2018-02-26 21:31] VITALS: BP 145/61; PULSE 77; RESP 18; TEMP 98.3; O2SAT 98
[~2018-02-26 21:31] MED LIST changes: +ASPI-183 PO; -ASPI325T PO; -ATOR1TAB18 PO; +ATOR80TA45 PO; -NORC5TAB PO; +OXYC-395 PO; +REST15CA PO; -TOPI1TAB36 PO; +TOPI50TA7 PO
[2018-02-26] MEDS ORDERED: diphenhydrAMINE HCL 50 MG/ML VIAL IVP ONE (21:45)
[2018-02-26] MEDS ORDERED: FAMO20TA2 PO (21:45)
[2018-02-26] MEDS ORDERED: HYDR50TA94 PO (21:45)
[2018-02-26] MEDS ORDERED: PROCHLORPERAZINE INJ 10 MG/2 ML VIAL IVP ONE (21:45)
[2018-02-26] MEDS ORDERED: SODIUM CHLORIDE 0.9% FLUSH 10 ML FLUSH IVF PRN (21:45)
[2018-02-26] MEDS ORDERED: BUPR150T5 PO (21:45)
[2018-02-26] MEDS ORDERED: HYDR12.57 PO (21:45)
[2018-02-26] MEDS ORDERED: LEVEMIR SQ (21:46)
[2018-02-26] MEDS ORDERED: METF500T PO (21:47)
[2018-02-26] MEDS ORDERED: CHOL1TAB42 (21:47)
--- NOTE | 2018-02-26 22:01 | RADRPT ---
EXAM DATE: 02/26/2018 9:58 PM EDT AGE/SEX: 52 years / Female INDICATIONS: Cephalgia today. CLINICAL DATA: This is the patient's initial encounter. Patient reports that signs and symptoms have been present for 1 day and indicates a pain score of 8/10. MEDICAL/SURGICAL HISTORY: Stroke. pseudo tumor cerebri . cardiac catheterization, cerebral shunt p lacement and removal RADIATION DOSE: 55.15 CTDI (mGy) COMPARISON: [facility], CT BRAIN W/O CONTRAST, 10/28/2016. . TECHNIQUE: CT of the head without contrast. Using automated exposure control and adjustment of the mA and/or kV according to patient size, radiation dose was kept as low as reasonably achievable to ob tain optimal diagnostic quality images. FINDINGS: Cerebrum: The ventricles are normal for age. No evidence of midline shift, mass lesion, hemorrhage or acute infarction. No extraaxial fluid collections are seen. Remote small infarcts again noted in the right basal ganglia and left periventricular white matter. Posterior Fossa: The cerebellum and brainstem are intact. The 4th ventricle is midline. The cerebe llopontine angle is unremarkable. Extracranial: The visualized portion of the orbits is intact. Skull: The calvaria is intact except right frontal bone margaret hole which is stable.. No evidence of skull fracture. CONCLUSION: 1. No acute findings. Stable bilateral lacunar infarcts as above. Stable margaret hole right frontal kehinde varium. Electronically signed by: Mahad Mary MD 02/26/2018 10:00 PM EDT
[2018-02-26 22:12] VITALS: BP 136/69; PULSE 70; RESP 16; O2SAT 98
--- NOTE | 2018-02-26 22:32 | PD ---
HPI . Headache Chief Complaint: Neuro Symptoms/ Deficits Time Seen by Provider: 21:41 Travel History International Travel<30 days: No Contact w/Intl Traveler<30days: No Traveled to known affect area: No History of Present Illness HPI Patient presents with chief complaint of an acute right-sided headache. Onset was less than an hour ago. She states that she had nausea and dizziness at the onset of the headache. She states that all symptoms are spontaneously improving. She states that she presented to us because she is concerned about a stroke. She states that she has had 2 previous strokes. She also has a history of diabetes, hypertension and previous DE status post stents. By the time of arrival, her symptoms were very mild. She is unaware of modifying factors. The symptoms seem to have spontaneously improved. PFSH Past Medical History Hx Anticoagulant Therapy: Yes (PLAVIX; 325MG ASA) Anemia: Yes Arthritis: Yes Blood Disorders: No Bipolar Disorder: Yes Anxiety: Yes Depression: Yes Heart Rhythm Problems: Yes Cancer: No Cardiac Catheterization: Yes Cardiovascular Problems: Yes High Cholesterol: Yes Chemotherapy: No Chest Pain: No COPD: Yes Cerebrovascular Accident: Yes Coronary Artery Disease: Yes Diabetes: Yes Patient Takes Glucophage: Yes Diminished Hearing: Yes (Bi-lateral) Endocrine: No Gastrointestinal Disorders: No GERD: Yes Genitourinary: Yes Headaches: Yes Hypertension: Yes Immune Disorder: No Implanted Vascular Access Dvce: No Kidney Stones: Yes Musculoskeletal: Yes (right shoulder bone spurs removed) Neurologic: Yes (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 FLUID) Psychiatric: Yes (BIPOLAR) Reproductive: Yes ( ) Respiratory: Yes (PNEUMONIA X 2) Integumentary: Yes (FACIAL CELLULITIS ) Immunizations Current: Yes Migraines: Yes Myocardial Infarction: Yes Pneumonia: Yes Radiation Therapy: No Seizures: Yes Sleep Apnea: Yes Tetanus Vaccination: Unknown Influenza Vaccination: No PNEUMOCCOCAL Vaccine (Year): 2 ?: Not Menopausal: Yes : 4 Para: 4 Miscarriage: 1 : 1 Past Surgical History AICD: No Arteriovenous Shunt: No Body Medical Devices: STENT PLACEMENT LAD/RCA, [employer] FRUIT SORTER IMPLANT Cardiac Surgery: Yes (CARDIAC CATH with 2 heart stents and angioplasty) Section: Yes (X2) Coronary Stent: Yes (2) Ear Surgery: Yes Endocrine Surgery: No Eye Surgery: No Genitourinary Surgery: No Gynecologic Surgery: Yes (2 C-sections, hysterectomy) Hysterectomy: Yes Insulin Pump: No Joint Replacement: No Neurologic Surgery: Yes (SPINAL FLUID REMOVED 2013) Oral Surgery: Yes (upper teeth pulled, bridge made) Pacemaker: No Tonsillectomy: Yes Other Surgery: Yes (cerebral shunt removed) Social History Alcohol Use: No Tobacco Use: No (QUIT 2015) Substance Use: No Allergies-Medications (Allergen,Severity, Reaction): Coded Allergies: latex (Unverified Allergy, Intermediate, ITCHING, 02/26/18) adhesive (Unverified Allergy, Mild, RASH/ITCHING, 02/26/18) bee venom protein (honey bee) (Unverified Allergy, Unknown, SHORTNESS OF BREATH, 02/26/18) Reported Meds & Prescriptions Reported Meds & Active Scripts Active Reported Vitamin D-3 (Cholecalciferol) 2,000 Unit Tab 5,000 Metformin (Metformin HCl) 500 Mg Tab 500 Mg PO BIDPC Levemir Inj (Insulin Detemir) 1,000 unit/ 10 ML Vial 28 Units SQ HS Do not mix with any other Insulin. Hydroxyzine HCl 50 Mg Tab 50 Mg PO QID PRN Hydrochlorothiazide 12.5 Mg Cap 12.5 Mg PO DAILY Famotidine 20 Mg Tab 20 Mg PO BID Bupropion HCl ER 12 HR (Bupropion HCl) 150 Mg Tab 150 Mg PO BID Restoril (Temazepam) 15 Mg Cap 15 Mg PO HS PRN Clopidogrel (Clopidogrel Bisulfate) 75 Mg Tab 75 Mg PO DAILY Topiramate 50 Mg Tab 50 Mg PO BID Metoprolol Tartrate 50 Mg Tab 50 Mg PO BID Lisinopril 10 Mg Tab 10 Mg PO DAILY Gabapentin 400 Mg Cap 400 Cap PO TID Atorvastatin (Atorvastatin Calcium) 80 Mg Tab 80 Mg PO HS Amlodipine (Amlodipine Besylate) 10 Mg Tab 10 Mg PO DAILY Review of Systems Except as stated in HPI: all other systems reviewed are Neg Physical Exam Narrative GENERAL: Awake and alert and in no acute distress. SKIN: warm/dry. HEAD: Normocephalic. Right-sided scalp tenderness. EYES: Pupils equal and round. No scleral icterus. No injection or drainage. ENT: No nasal bleeding or discharge. Mucous membranes pink and moist. NECK: Trachea midline. Full range of motion without pain.. CARDIOVASCULAR: Regular rate and rhythm. RESPIRATORY: No accessory muscle use. Clear to auscultation. Breath sounds equal bilaterally. MUSCULOSKELETAL: No obvious deformities. NEUROLOGICAL: Awake and alert. No obvious cranial nerve deficits. Motor grossly within normal limits. Normal speech. Negative pronator drift. PSYCHIATRIC: Appropriate mood and affect; insight and judgment normal. Data Data Last Documented VS Vital Signs Date Time Temp Pulse Resp B/P (MAP) Pulse Ox O2 Delivery O2 Flow Rate FiO2 02/26/18 22:12 70 16 136/69 (91) 98 Room Air 02/26/18 21:[address] Brain W/O Iv Contrast(Rout) (02/26/18 21:41) Iv Access Insert/Monitor (02/26/18 21:41) Sodium Chloride 0.9% Flush (Ns Flush) (02/26/18 21:45) Prochlorperazine Inj (Compazine Inj) (02/26/18 21:45) Diphenhydramine Inj (Benadryl Inj) (02/26/18 21:45) Ed Discharge Order (02/26/18 22:26) MDM Medical Decision Making Medical Screen Exam Complete: Yes Emergency Medical Condition: Yes Medical Record Reviewed: Yes (PMH of HTN, DM, HL, previous DE s/p stents, previous L basal ganglia stroke with extension in October 2016 which was treated conservatively. She did have dysarthria and progressive R-sided weakness then.) Differential Diagnosis Differential diagnosis of headache includes but is not limited to migraine, muscle contraction headache, brain tumor, brain bleed Narrative Course This patient presents with an acute right-sided headache associated with nausea and dizziness. Her symptoms have spontaneously improved. She was treated here with IV Compazine and Benadryl and reports that her symptoms have basically completely resolved. The patient was concerned about a stroke. She was seen here in October 2016 with dysarthria and right-sided weakness. She did have extension of a left basal ganglia stroke which was seen on MRI. It was treated conservatively. She does not have dysarthria or right-sided weakness tonight. 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
== END 2018-02-26 22:45 | disposition home or self-care (01) ==
LOC: PHED 21:31
DX: G44.039 Episodic paroxysmal hemicrania, not intractable (principal); E11.9 Type 2 diabetes mellitus without complications; I10 Essential (primary) hypertension; F31.9 Bipolar disorder, unspecified; F41.9 Anxiety disorder, unspecified; E78.00 Pure hypercholesterolemia, unspecified; I25.10 Atherosclerotic heart disease of native coronary artery without angina pectoris; Z86.73 Personal history of transient ischemic attack (TIA), and cerebral infarction without residual deficits; Z87.891 Personal history of nicotine dependence
CPT/HCPCS: 70450; 96374; 96375; 99284; J0780; J1200

== ENCOUNTER 2018-03-24 18:22 | Emergency (ER) | payer OTHER, MEDICARE ==
[~2018-03-24] VITALS: Ht 167.6 cm; Wt 100.0 kg
[2018-03-24 18:22] VITALS: BP 105/55; PULSE 96; RESP 20; TEMP 98.2; O2SAT 96
[~2018-03-24 18:22] MED LIST changes: -ASPI-183 PO; +BUPR150T5 PO; +CHOL1TAB42; +FAMO20TA2 PO; -FAMO40TA PO; +HYDR12.57 PO; +HYDR50TA94 PO; +METF500T PO; -OXYC-395 PO; -PARO25TA PO; -TRAZ50TA12 PO
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
[2018-03-24] MEDS ORDERED: ACETAMINOPHEN 325 MG TAB PO ONE (18:45)
[2018-03-24] MEDS ORDERED: METHOCARBAMOL 500 MG TAB PO ONE (18:45)
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
[2018-03-24] MEDS ORDERED: ROBA750T PO (19:22)
[2018-03-24 19:23] VITALS: BP 154/76
== END 2018-03-24 19:53 | disposition home or self-care (01) ==
LOC: PHEFT 18:22
DX: S16.1XXA Strain of muscle, fascia and tendon at neck level, initial encounter (principal); M54.5 Low back pain; J44.9 Chronic obstructive pulmonary disease, unspecified; E11.9 Type 2 diabetes mellitus without complications; I10 Essential (primary) hypertension; V49.49XA Driver injured in collision with other motor vehicles in traffic accident, initial encounter; Z79.01 Long term (current) use of anticoagulants
CPT/HCPCS: 72100; 72125; 99284